=== PATIENT | female | born 1990 | race Hispanic/Latino ===

== ENCOUNTER 2019-04-26 18:32 | Inpatient (IN) | payer OTHER ==
--- OUTSIDE RECORDS SUMMARY | 2019-04-26 18:33 | XMS REPORT ---
:1990 Author Organization eClinicalWorks Care Team Providers Name Role Phone Blackwell, Na Provider Role Unavailable Allergies, Adverse Reactions, Alerts Substance Reaction Event Type N.K.D.A. Info Not Available Non Drug Allergy Problems Problem Type Condition Code Onset Dates Condition Status Problem Prediabetes R73.09 Active Problem Fatty liver K76.0 Active Problem Obesity (BMI 30-39.9) E66.9 Active Problem Tonsillith J35.8 Active Problem Pre-diabetes R73.03 Active Problem Strep pharyngitis J02.0 Active Problem Acne rosacea L71.9 Active Problem Elevated antinuclear antibody (ROE) R76.8 Active level Problem Acne, unspecified acne type L70.9 Active Problem Menorrhagia with regular cycle N92.0 Active Assessment Tonsillith J35.8 Active Problem Microcytosis R71.8 Active Assessment Strep pharyngitis J02.0 Active Problem Polycystic ovary syndrome E28.2 Active Medications Medication Code Code Instructions Start End Status Dosage System Date Date Metronidazole [facility] 77504981295 0.75 % Jul 06, Active 1 application Externally 2018 to affected Twice a day area Metformin HCl ND 25545666825 500 MG Orally Active 1 tablet with once a day meals Milk Thistle [facility] 56218610233 500 MG Orally Active not defined Azithromycin [facility] 35539127214 250 MG Orally Aug 25, Active 2 tablets on Once a day 2018 the first day, then 1 tablet daily for [address] [facility] 70460347011 200-200-50 MG Active not defined Complex Orally Loestrin Fe ND 96625825892 1.5-30 MG-MCG Active 1 tablet 1.5/30 Orally Once a day Metformin HCl ND 24490572908 500 MG Orally Active 1 tablet with Twice a day meals Results No Known Results Summary Purpose eClinicalWorks Submission
--- OUTSIDE RECORDS SUMMARY | 2019-04-26 18:34 | XMS REPORT ---
:1990 Author Organization e[employer]Works Care Team Providers Name Role Phone AzaliaGentry Provider Role Unavailable Allergies No Known Allergies Problems Problem Type Condition Code Onset Dates Condition Status Problem Acne rosacea L71.9 Active Problem Pre-diabetes R73.03 Active Problem Acne, unspecified acne type L70.9 Active Problem Gestational diabetes mellitus (GDM) O24.415 Active in second trimester controlled on oral hypoglycemic drug Problem Supervision of high risk O09.92 Active in second trimester Problem Proteinuria affecting in O12.13 Active third trimester Problem Strep pharyngitis J02.0 Active Problem Menorrhagia with regular cycle N92.0 Active Problem Supervision of high risk O09.91 Active in first trimester Problem Tonsillith J35.8 Active Assessment Supervision of high risk O09.92 Active in second trimester Assessment Proteinuria affecting in O12.13 Active third trimester Assessment Gestational diabetes mellitus (GDM) O24.415 Active in second trimester controlled on oral hypoglycemic drug Problem Prediabetes R73.09 Active Problem Obesity (BMI 30-39.9) E66.9 Active Problem Microcytosis R71.8 Active Problem Fatty liver K76.0 Active Problem Polycystic ovary syndrome E28.2 Active Problem Elevated antinuclear antibody (ROE) R76.8 Active level Medications Medication Code Code Instructions Start End Date Status Dosage System Date GlyBURIDE [facility] 87424533756 1.25 MG Orally Active 1 tablet Before dinner with breakfast or the first main meal of the day Results No Known Results Summary Purpose eClinicalWorks Submission
--- OUTSIDE RECORDS SUMMARY | 2019-04-26 18:34 | XMS REPORT ---
:1990 Author Organization eClinicalWorks Care Team Providers Name Role Phone Gentry Vieyra Provider Role Unavailable Allergies No Known Allergies Problems Problem Type Condition Code Onset Dates Condition Status Problem Obesity (BMI 30-39.9) E66.9 Active Problem Elevated antinuclear antibody (ROE) R76.8 Active level Problem Fatty liver K76.0 Active Problem Tonsillith J35.8 Active Problem Strep pharyngitis J02.0 Active Problem Supervision of high risk O09.91 Active in first trimester Problem Acne, unspecified acne type L70.9 Active Problem Acne rosacea L71.9 Active Problem Menorrhagia with regular cycle N92.0 Active Problem Pre-diabetes R73.03 Active Problem Microcytosis R71.8 Active Problem Polycystic ovary syndrome E28.2 Active Assessment Supervision of high risk O09.92 Active in second trimester Problem Prediabetes R73.09 Active Medications Medication Code Code Instructions Start End Status Dosage System Date Date Metformin HCl [facility] 71623553702 500 MG Orally Active 1 tablet Once a day with a meal Milk Thistle ND 23773877757 500 MG Orally Active as directed Berberine [facility] 02276794660 200-200-50 MG Active as directed Complex Orally Results No Known Results Summary Purpose eClinicalWorks Submission
--- OUTSIDE RECORDS SUMMARY | 2019-04-26 18:34 | XMS REPORT ---
[...] End Date Status Dosage System Date GlyBURIDE [facility] 16277186047 1.25 MG Orally Active 1 tablet Before dinner with breakfast or the first main meal of the day Results No Known Results Summary Purpose eClinicalWorks Submission
--- OUTSIDE RECORDS SUMMARY | 2019-04-26 18:34 | XMS REPORT ---
[...] Start End Status Dosage System Date Date Milk Thistle [facility] [place] 67731720614 500 MG Orally Active as directed Berberine [facility] [place] 98394279847 200-200-50 MG Active as directed Complex Orally Metformin HCl [facility] [place] 07623713798 500 MG Orally Active 1 tablet Once a day with a meal Results No Known Results Summary Purpose eClinicalWorks Submission
--- OUTSIDE RECORDS SUMMARY | 2019-04-26 18:34 | XMS REPORT ---
:1990 Author Organization eClinicalWorks Care Team Providers Name Role Phone Gentry Vieyra Provider Role Unavailable Allergies No Known Allergies Problems Problem Type Condition Code Onset Dates Condition Status Problem Acne, unspecified acne type L70.9 Active Problem Menorrhagia with regular cycle N92.0 Active Problem Pre-diabetes R73.03 Active Problem Gestational diabetes mellitus (GDM) O24.415 Active in third trimester controlled on oral hypoglycemic drug Assessment Proteinuria affecting in O12.13 Active third trimester Problem Proteinuria affecting in O12.13 Active third trimester Problem Supervision of high risk O09.93 Active in third trimester Problem Tonsillith J35.8 Active Problem Strep pharyngitis J02.0 Active Problem Supervision of high risk O09.92 Active in second trimester Problem Supervision of high risk O09.91 Active in first trimester Problem Microcytosis R71.8 Active Assessment Gestational diabetes mellitus (GDM) O24.415 Active in third trimester controlled on oral hypoglycemic drug Assessment Supervision of high risk O09.93 Active in third trimester Problem Obesity (BMI 30-39.9) E66.9 Active Problem Fatty liver K76.0 Active Problem Polycystic ovary syndrome E28.2 Active Problem Elevated antinuclear antibody (ROE) R76.8 Active level Problem Prediabetes R73.09 Active Problem Acne rosacea L71.9 Active Medications Medication Code Code Instructions Start End Date Status Dosage System Date GlyBURIDE [facility] [id number] 1.25 MG Orally Active 1 tablet Before dinner with breakfast or the first main meal of the day Results No Known Results Summary Purpose eClinicalWorks Submission
--- OUTSIDE RECORDS SUMMARY | 2019-04-26 18:34 | XMS REPORT ---
:1990 Author Organization eClinicalWorks Care Team Providers Name Role Phone Gentry Vieyra Provider Role Unavailable Allergies No Known Allergies Problems Problem Type Condition Code Onset Dates Condition Status Problem Elevated antinuclear antibody (ROE) R76.8 Active level Problem Acne, unspecified acne type L70.9 Active Problem Acne rosacea L71.9 Active Problem Gestational diabetes mellitus (GDM) O24.415 Active in second trimester controlled on oral hypoglycemic drug Problem Supervision of high risk O09.91 Active in first trimester Problem Supervision of high risk O09.92 Active in second trimester Problem Menorrhagia with regular cycle N92.0 Active Problem Pre-diabetes R73.03 Active Problem Tonsillith J35.8 Active Problem Strep pharyngitis J02.0 Active Assessment Gestational diabetes mellitus (GDM) O24.415 Active in second trimester controlled on oral hypoglycemic drug Assessment Supervision of high risk O09.92 Active in second trimester Problem Polycystic ovary syndrome E28.2 Active Problem Prediabetes R73.09 Active Problem Obesity (BMI 30-39.9) E66.9 Active Problem Microcytosis R71.8 Active Problem Fatty liver K76.0 Active Medications Medication Code Code Instructions Start End Status Dosage System Date Date GlyBURIDE [facility] [address]-86 1.25 MG Orally Active Before twice a day dinner and before bedtime Berberine [facility] 18544313631 200-200-50 MG Active as directed Complex Orally Metformin HCl [facility] 18096615408 500 MG Orally Active 1 tablet Once a day with a meal GlyBURIDE [facility] 80038847708 1.25 MG Orally [place] Active 1 tablet Before dinner 2018 with breakfast or the first main meal of the day Milk Thistle ND 35028311533 500 MG Orally Active as directed Results No Known Results Summary Purpose eClinicalWorks Submission
--- OUTSIDE RECORDS SUMMARY | 2019-04-26 18:34 | XMS REPORT ---
:1990 Author Organization eClinicalWorks Care Team Providers Name Role Phone Gentry Vieyra Provider Role Unavailable Allergies, Adverse Reactions, Alerts Substance Reaction Event Type N.K.D.A. Info Not Available Non Drug Allergy Problems Problem Type Condition Code Onset Dates Condition Status Problem Obesity (BMI 30-39.9) E66.9 Active Problem Elevated antinuclear antibody R76.8 Active (ROE) level Problem Fatty liver K76.0 Active Problem Tonsillith J35.8 Active Problem Strep pharyngitis J02.0 Active Problem Supervision of high risk O09.91 Active in first trimester Problem Acne, unspecified acne type L70.9 Active Problem Acne rosacea L71.9 Active Problem Menorrhagia with regular cycle N92.0 Active Problem Pre-diabetes R73.03 Active Assessment Encounter to determine O36.80X0 Active viability of , single or unspecified fetus Assessment Encounter for supervision of Z34.91 Active low-risk in first trimester Assessment Supervision of high risk O09.91 Active in first trimester Problem Microcytosis R71.8 Active Assessment Encounter for care in Z34.01 Active first trimester of first Problem Polycystic ovary syndrome E28.2 Active Assessment Amenorrhea N91.2 Active Problem Prediabetes R73.09 Active Medications Medication Code Code Instructions Start End Status Dosage System Date Date Berberine [facility] 18663758529 200-200-50 MG Active as directed Complex Orally Metformin HCl [facility] 74485356710 500 MG Orally Active 1 tablet Once a day with a meal Milk Thistle ND 36851522833 500 MG Orally Active as directed Results Name Result Date Reference Range Unit Abnormality Flag Hemoglobin A1C ----Hemoglobin A1c 5.5 20181021 4.2-6.3 % T4 Free ----T4 Free 1.60 20181021 0.76-1.46 H Summary Purpose eClinicalWorks Submission
--- OUTSIDE RECORDS SUMMARY | 2019-04-26 18:34 | XMS REPORT ---
[...] End Date Status Dosage System Date GlyBURIDE [facility] 16122627791 1.25 MG Orally Active 1 tablet Before dinner with breakfast or the first main meal of the day Results No Known Results Summary Purpose eClinicalWorks Submission
--- OUTSIDE RECORDS SUMMARY | 2019-04-26 18:34 | XMS REPORT ---
[...] End Date Status Dosage System Date GlyBURIDE [facility] 75960069451 1.25 MG Orally Active 1 tablet Before dinner with breakfast or the first main meal of the day Results No Known Results Summary Purpose eClinicalWorks Submission
[2019-04-26] MEDS ORDERED: Ringers Lactate 1,000 ML IV PRN (18:38)
[2019-04-26] MEDS ORDERED: miSOPROStol 100 MCG TAB VAG PRN (18:53)
[2019-04-26] MEDS ORDERED: Ringers Lactate 1,000 ML IV SCH (19:00)
[2019-04-26 19:14] LABS: Urine Appearance CLEAR; Urine Bilirubin NEGATIVE (NEG); Urine Blood NEGATIVE (NEG); Urine Color YELLOW; Urine Glucose NEGATIVE (NEG); Urine Protein NEGATIVE (NEG); Urine Urobilinogen 0.2 mg/dL (0.2-1.0)
[2019-04-26 19:15] LABS: Urine Microscopic Reflex ORDER UMIC
[2019-04-26 19:22] LABS: Absolute Lymphocytes (CBC) 1.7 K/uL (0.7-4.9); Basophils % 0.2 % (0-1.3); Lymphocytes % 27.2 % (15.3-44.8); MPV 9.8 fL (7.6-11.3); RBC Red Blood Cell Count 4.25 M/uL (3.86-4.86)
[2019-04-26 19:49] LABS: RPR (Rapid Plasma Reagin) NON-REACT (NON-REACT)
[2019-04-26 19:57] LABS: Urine Bacteria 20-50 /HPF (<20); Urine Culture Reflex Order REFLEXED; Urine RBC <5 /HPF (NONE SEEN)
[2019-04-26] MEDS ORDERED: ZOLPIDEM TARTRATE 5 MG TABLET PO PRN (20:15)
[2019-04-27] MEDS ORDERED: FENTANYL CITR 100 MCG/2 ML IV ONE (20:39)
[2019-04-27] MEDS ORDERED: ROPIVACAINE HCL 100 ML IV PRN (20:39)
[2019-04-27] MEDS ORDERED: ROPIVACAINE HCL 0.2% 20ML AMP SQ ONE (20:41)
[2019-04-27] MEDS ORDERED: FENTANYL CITR 100 MCG/2 ML ONE (21:20)
--- NOTE | 2019-04-27 22:34 | P.PN ---
Date of Service: 04/27/19 Patient is a 28 y/o at 37 weeks and 1 day gestation with pregestational diabetes, uteroplacental insufficiency, and chronic hypertension who was admitted for induction of labor at the recommendation of [facility]. Patient has had 24 hours of cervical ripening. She has been doing well. She is now 2 cm dilated. Rupture of membranes has been performed and clear fluid was seen. She is GBS negative. Continuous maternal monitoring will be performed and the patient has been started on pitocin for labor augmentation. Patient will request an epidural once she is ready.
[2019-04-28] MEDS ORDERED: Oxycodone HCl/Acetaminophen 1 TAB TAB PO PRN (05:58)
[2019-04-28] MEDS ORDERED: ACETAMINOPHEN 500 MG TAB PO PRN (05:58)
[2019-04-28] MEDS ORDERED: IBUPROFEN 200 MG TAB PO PRN (05:58)
[2019-04-28 06:37] LABS: Absolute Lymphocytes (CBC) 0.8 K/uL (0.7-4.9); Basophils % 0.1 % (0-1.3); Lymphocytes % 7.1 % (15.3-44.8); MPV 9.8 fL (7.6-11.3); RBC Red Blood Cell Count 4.24 M/uL (3.86-4.86)
[2019-04-28 06:53] LABS: BUN Blood Urea Nitrogen 6 mg/dL (7-18)
[2019-04-28] MEDS: AMPICILLIN SODIUM 2 GM in NA CHLORIDE 0.9% 100 ML IVPB SCH ×3 (07:40→19:30)
[2019-04-28] MEDS: GENTAMICIN 80 MG/100 ML BAG 80 MG/100 ML BAG IV SCH ×2 (08:45→22:00)
[2019-04-28] MEDS ORDERED: Gentamicin Inj 80 MG in NA CHLORIDE 0.9% 100 ML IVPB SCH (09:00)
[2019-04-28 09:15] LABS: Blood Morphology Comment NOT SEEN (NOT SEEN); Platelet Estimate ADEQ
[2019-04-28] MEDS: OXYTOCIN/LR 20 UNIT/1,000 ML BAG IV SCH ×2 (11:00→17:56)
[2019-04-28 18:26] LABS: Absolute Lymphocytes (CBC) 1.7 K/uL (0.7-4.9); Basophils % 0.2 % (0-1.3); Hematocrit 33.1 % (36.0-45.0); Lymphocytes % 13.7 % (15.3-44.8); MPV 10.2 fL (7.6-11.3); RBC Red Blood Cell Count 4.09 M/uL (3.86-4.86)
[2019-04-28 20:15] LABS: Blood Morphology Comment NOT SEEN (NOT SEEN); Platelet Estimate ADEQ; Urine White Blood Cell Casts OK
--- NOTE | 2019-04-28 23:32 | P.OP ---
Date of Service: 04/28/19 Findings and Operative Technique FINDINGS: Female fetus in NEGRITO position, APGARS of 9/10 at 1 and 5 minutes respectively, weight of 6 lb 8 oz, clear amniotic fluid. Nuchal cord x1. Normal appearing placenta. First degree midline laceration and right side periurethral tear. Stage I: 8 h 20 min; Stage II: 54 min. HISTORY OF PRESENT ILLNESS: The patient is a 28-year-old female who is a at 37 weeks and 1 day gestation who was admitted for an induction of labor. She had adequate care and was complicated by pregestational diabetes, chronic hypertension, and uteroplacental insufficiency. On admission, she was closed and cervical ripening was done with misoprostol. She denied complaints and noted positive movement. PROCEDURE DETAILS: The patient was admitted to Labor and Delivery for induction , which was done with misoprostol. She requested an epidural for pain control, which was placed with good result. AROM was done, with clear fluid noted. Labor progressed normally. She had a spontaneous vaginal delivery of a live born female with clear fluid from an NEGRITO position at 5:24am. After controlled delivery of the head. Next, the shoulders and body followed without difficulty. Bulb suctioning was done. The cord was clamped and cut. The infant was placed on the patient's abdomen for skin to skin contact. Findings as stated above. There was no depression. was crying, vigorous, and moving all extremities. Spontaneous delivery of an intact placenta with a three-vessel cord was noted at 5:29am. On examination, there was 1st degree midline laceration. It was repaired by placing a figure of 8 using 2-0 vicryl. On vaginal exam, there were no noted cervical or vaginal sidewall lacerations. A periurethral laceration was seen but not bleeding. No sutures placed. Patient tolerated procedure well and there were no complications. Estimated blood loss was ~300 cc. Mother and infant are in recovery doing well at this time. Due to long labor and slightly elevated temperature CBC has been ordered and antibiotics will be given.
[2019-04-29] MEDS: AMPICILLIN SODIUM 2 GM in NA CHLORIDE 0.9% 100 ML IVPB SCH (02:30)
[2019-04-29 06:25] LABS: Absolute Lymphocytes (CBC) 1.9 K/uL (0.7-4.9); Basophils % 0.2 % (0-1.3); Hematocrit 29.6 % (36.0-45.0); Lymphocytes % 22.2 % (15.3-44.8); MPV 9.6 fL (7.6-11.3); RBC Red Blood Cell Count 3.68 M/uL (3.86-4.86)
[2019-04-29 08:34] VITALS: TEMP 96.8; BMI 34.7
[2019-04-29 12:53] VITALS: BP 121/84
[2019-04-29] MEDS ORDERED: Tdap (Diph,Pertuss(Acell),Tet Vac) 0.5 ML SYR IMVAC ONE (13:00)
--- NOTE | 2019-04-29 14:11 | P.DS ---
Admission Date: 04/26/19 Discharge Date: 04/29/19 Disposition: ROUTINE DISCHARGE Discharge Condition: GOOD Brief History of Present Illness: See H&P Hospital Course: FINDINGS: Female fetus in NEGRITO position, APGARS of 9/10 at 1 and 5 minutes respectively, weight of 6 lb 8 oz, clear amniotic fluid. Nuchal cord x1. Normal appearing placenta. First degree midline laceration and right side periurethral tear. Stage I: 8 h 20 min; Stage II: 54 min. HISTORY OF PRESENT ILLNESS: The patient is a 28-year-old female who is a at 37 weeks and 1 day gestation who was admitted for an induction of labor. She had adequate care and was complicated by pregestational diabetes, chronic hypertension, and uteroplacental insufficiency. On admission, she was closed and cervical ripening was done with misoprostol. She denied complaints and noted positive movement. PROCEDURE DETAILS: The patient was admitted to Labor and Delivery for induction , which was done with misoprostol. She requested an epidural for pain control, which was placed with good result. AROM was done, with clear fluid noted. Labor progressed normally. She had a spontaneous vaginal delivery of a live born female with clear fluid from an NEGRITO position at 5:24am. After controlled delivery of the head. Next, the shoulders and body followed without difficulty. Bulb suctioning was done. The cord was clamped and cut. The infant was placed on the patient's abdomen for skin to skin contact. Findings as stated above. There was no depression. Infant was crying, vigorous, and moving all extremities. Spontaneous delivery of an intact placenta with a three-vessel cord was noted at 5:29am. On examination, there was 1st degree midline laceration. It was repaired by placing a figure of 8 using 2-0 vicryl. On vaginal exam, there were no noted cervical or vaginal sidewall lacerations. A periurethral laceration was seen but not bleeding. No sutures placed. Patient tolerated procedure well and there were no complications. Estimated blood loss was ~300 cc. Mother and are in recovery doing well at this time. Due to long labor and slightly elevated temperature CBC has been ordered and antibiotics will be given. Patient has been doing well since delivery of the baby. She is bonding well with the baby and trying her best to breast feed. She has been afebrile and WBC count has gone down. IV antibiotics were discontinued. Baby is doing well also. Vital Signs/Physical Exam: Temp Pulse Resp BP Pulse Ox 96.8 F 64 18 121/84 04/29/19 12:51 04/29/19 12:51 04/29/19 12:51 04/29/19 12:51 General: Alert, In no apparent distress, Oriented x3 HEENT: Atraumatic Neck: Supple Respiratory: Normal air movement Cardiovascular: No edema, Normal pulses Gastrointestinal: Soft and benign (fundus firm palpable beneath umbilicus) Musculoskeletal: No clubbing, No swelling Integumentary: No rashes, No breakdown Neurological: Normal gait, Normal speech Laboratory Data at Discharge: WBC 8.3 K/uL (4.3-10.9) D 04/29/19 05:52 Hgb 10.2 g/dL (12.0-15.0) L 04/29/19 05:52 Hct 29.6 % (36.0-45.0) L 04/29/19 05:52 Plt Count 148 K/uL (152-406) L 04/29/19 05:52 BUN 6 mg/dL (7-18) L 04/28/19 06:13 Creatinine 0.54 mg/dL (0.55-1.3) L 04/28/19 06:13 Home Medications: glyBURIDE [Glyburide] 1.25 mg PO DAILY AT SUPPER 04/26/19 Diet: Regular Activity: No lifting more than 10 lbs Followup: Gentry Vieyra DO [ACTIVE - CAN ADMIT] -
[2019-04-30 12:42] LABS: HBsAG Nonreactive (Nonreactive)
== END 2019-04-29 12:40 | disposition home or self-care (01) | DRG 806 ==
LOC: 2ND-WC 18:32
PROVIDERS: ADMIT Student in an Organized Health Care Education/Training Program; ATTEND Student in an Organized Health Care Education/Training Program
PROC: 3E0P7VZ Introduction of Hormone into Female Reproductive, Via Natural or Artificial Opening (ICD-10-PCS; 2019-04-26)
PROC: 10E0XZZ Delivery of Products of Conception, External Approach (ICD-10-PCS; principal; 2019-04-27)
PROC: 0HQ9XZZ Repair Perineum Skin, External Approach (ICD-10-PCS; 2019-04-27)
DX: O24.420 Gestational diabetes mellitus in childbirth, diet controlled (principal); O10.92 Unspecified pre-existing hypertension complicating childbirth; Z37.0 Single live birth; Z3A.37 37 weeks gestation of pregnancy; O36.5130 Maternal care for known or suspected placental insufficiency, third trimester, not applicable or unspecified; O70.0 First degree perineal laceration during delivery; O69.81X0 Labor and delivery complicated by cord around neck, without compression, not applicable or unspecified
CPT/HCPCS: 36415; 81003; 81015; 82565; 84520; 85025; 86592; 86850; 86900; 86901; 87086; 87088; 87340; 88307; 90715; J0290; J1580; J2590; J2795; J3010